=== PATIENT | female | born 1990 | race Caucasian/White ===

== ENCOUNTER 2022-03-12 15:57 | Inpatient (IN) | payer SELFPAY ==
--- OUTSIDE RECORDS SUMMARY | 2022-03-12 16:00 | XMS REPORT | Continuity of Care Document ---
:1990 Author Organization [facility] t Address [address] [place] [address] Dr. Arzate [address] [place] [id number] Care Team Providers Name Role Phone DR RADHA ZALDIVAR Attending Clinician Unavailable DR RADHA ZALDIVAR Admitting Clinician Unavailable Problems This patient has no known problems. Allergies, Adverse Reactions, Alerts Allergy Allergy Status Severity Reaction(s) Onset Inactive Treating Comm ents Source Name Type Date Date Clinician No Known DA Active [facility] s Medications This patient has no known medications. Vital Signs Vital Name Observation Time Observation Value Comments Source Height 2021-02-15 01:24:00 162.56 CM Weight 2021-02-15 01:24:00 65.18 KG Procedures This patient has no known procedures. Encounters Start End Encounter Admission Attending Care Care Encounter Source Date/Time Date/Time Type Type Clinicians Facility Department ID 2021-02-15 2021-02-15 Emergency E ZALDIVAR [facility] [id number] [address] 01:03:00 03:00:00 RADHA [facility] Results Test Description Test Time Test Comments Results Result Comments Source BLOOD CULTURE 2021-02-20 07:54:00 Test Item Value Reference Range Interpretation Comme nts Culture Observations (test code = COB1) NO GROWTH AFTER 5 DAYS CBC WITH MANUAL DIFF *WW*2021-02-15 02:21:00 Test Item Value Reference Range Interpretation Comments WBC (test code = WBC) 15.7 10\S\3/uL 4.5-11.0 H RBC (test code = RBC) 4.32 10\S\6/uL 4.30-5.70 HGB (test code = HBG) 8.5 g/dL 12.0-15.5 L HCT (test code = HCT) 29.5 % 35.0-44.0 L MCV (test code = MCV) 68.3 fL 81.0-99.0 L MCH (test code = MCH) 19.7 pg 27.0-31.0 L MCHC (test code = MCHC) 28.8 g/dL 32.0-36.0 L RDW (test code = RDW) 20.3 % 11.5-14.5 H PLT (test code = PLT) 349 10\S\3/uL 130-400 MPV (test code = MPV) 9.8 fL 9.4-12.4 NEUTROP # (test code = 13.0 10\S\3/uL 1.6-8.0 H NE#) LYMPH # (test code = 1.6 10\S\3/uL 1.1-3.5 LY#) MONOCYTE # (test code = 0.9 10\S\3/uL 0.0-1.1 MO#) EOSINOPH # (test code = 0.1 10\S\3/uL 0.0-0.7 EO#) BASOPHIL # (test code = 0.0 10\S\3/uL 0.0-0.3 BA#) IG # (test code = IG#) 0.08 10\S\3/uL 0.00-0.06 H NRBC # (test code = 0.00 10\S\3/uL 0.00-0.01 NRBC#) NEUTROPH % (test code = 82.4 % 35.0-73.0 H NE%) LYMPH % (test code = 10.4 % 20.0-55.0 L LY%) MONO % (test code = MO%) 6.0 % 2.5-10.0 EOSINOPH % (test code = 0.6 % 0.0-5.0 EO%) BASOPHIL % (test code = 0.1 % 0.0-2.0 BA%) IG % (test code = IG%) 0.5 % 0.0-0.8 NRBC% (test code = 0.0 % 0.0-0.2 NRBC%) MAN DIFF (test code = MANUAL HMDIFF) DIFFERENTIAL SEG (test code = SEG) 87 % 42-75 H BAND (test code = BAND) 0 % 0-8 LYMPH (test code = 6 % 20-51 L LYMPH) MONO (test code = MONO) 5 % 3-11 EOS (test code = EOS) 2 % 0-10 BASO (test code = BASO) 0 % 0-2 RBC MORPH (test code = ABNORMAL NORMAL A RBCMORN) PLT EST (test code = ADEQUATE ADEQUATE PLTEST) PLT MORPH (test code = NORMAL (1.5-3 um) NORMAL PLTMOR) ANISO (test code = 3+ NONE A ANISO) HYPOCHROM (test code = 4+ NONE A HYPOC) MICROCYTIC (test code = 3+ NONE A MICRO) TOXIC GRAN (test code = 1+ NONE A TOXG) VACUOLES (test code = PRESENT NONE A VAC) OVALOCYTES (test code = 1+ NONE A OVA) STOMATO (test code = 1+ NONE A STOM) BASIC METABOLIC PANEL 2021-02-15 02:09:00 Test Item Value Reference Range Interpretation Comments GLUCOSE (test code 107 mg/dL 75-100 H = 06D) SODIUM (test code 135 mmol/L 136-145 L = 01A) POTASSIUM (test 3.9 mmol/L 3.6-5.1 code = 01B) CHLORIDE (test 107 mmol/L 98-107 code = 04A) CO2 (test code = 22 mmol/L 22-32 02A) ANION GAP (test 9.9 mmol/L code = ANG) BUN (test code = 8 mg/dL 7-18 05D) CREATININE (test 0.5 mg/dL 0.4-1.1 code = 03E) GFR (test code = 125 See_Comment [Automated GFR) mL/min/1.73m\S\2 message] e system which generated this result transmit janet reference range : >=90. The reference range was not used to interpret this result as normal/abnormal . GFR 145 See_Comment [Automated GIBRALTARIAN (test mL/min/1.73m\S\2 message] The code = GFRAA) system which generated this result transmit janet reference range : >=90. The reference range was not used to interpret this result as normal/abnormal . EGFR (test code = eGFR BY EGFR) CKD-EPI CALCULATION IS NOT RECOMMENDED FOR PATIENTS UNDER 18 YEARS OF AGE. BUN/CREA (test 15 06-11 code = BCR) CALCIUM (test code 8.9 mg/dL 8.3-9.5 = 09D) SERUM MONOCLONAL *WW*2021-02-15 01:57:00 Test Item Value Reference Range Interpretation Comments PREG SRM (test code = PGS) NEGATIVE NEGATIVE
[2022-03-12 17:25] LABS: SARS-CoV-2 Antigen Rapid Res Negative (Negative)
[2022-03-12 17:31] LABS: Urine Blood 1+ (Negative); Urine Glucose Negative (Negative); Urine Protein 2+ (Negative); Urine pH 5.5 (5.0-7.0)
[2022-03-12 18:25] LABS: Urine Bacteria 20-50 /HPF (<20); Urine Mucus Slight /HPF (None Seen); Urine RBC >50 /HPF (None Seen)
--- NOTE | 2022-03-12 19:37 | ER ---
Nurse's Notes [facility] Name: Ofelia Pacheco Age: 32 yrs Sex: Female : 1990 Arrival Date: 03/12/2022 Time: 16:01 Bed 23 Private MD: Diagnosis: UTI/ Urinary tract infection, site not specified;Severe sepsis with septic shock Presentation: 03/12 16:08 Chief complaint: Patient states: back pain and left flank x3 days denies trauma. 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 20g left hand. Coronavirus screen: Vaccine status: Patient reports being unvaccinated. Client denies travel out of the [place] in the last 14 days. Ebola Screen: Patient negative for fever greater than or equal to 101.5 degrees Fahrenheit, and additional compatible Ebola Virus Disease symptoms Patient denies exposure to infectious person. Patient denies travel to an Ebola-affected area in the 21 days before illness onset. Initial Sepsis Screen: Does the patient meet any 2 criteria? No. Patient's initial sepsis screen is negative. Does the patient have a suspected source of infection? No. Patient's initial sepsis screen is negative. Risk Assessment: Do you want to hurt yourself or someone else? Patient reports no desire to harm self or others. Onset of symptoms was March 09, 2022. 16:08 Method Of Arrival: EMS: [facility] 16:08 Acuity: TAZ 3 5 Triage Assessment: 16:10 General: Appears uncomfortable, unkempt, Behavior is calm, cooperative. Pain: Complains [facility] of pain in back. Musculoskeletal: Circulation, motion, and sensation intact. Capillary refill < 3 seconds, Range of motion: intact in all extremities. 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 - Social history:: Smoking status: Patient reports the use of cigarette tobacco products, smokes one pack cigarettes per day. Screenin:30 Abuse screen: Denies threats or abuse. Denies injuries from another. Nutritional kb3 screening: No deficits noted. Tuberculosis screening: No symptoms or risk factors identified. Fall Risk None identified. Assessment: 19:30 General: Appears distressed, uncomfortable, Behavior is calm, cooperative, anxious, kb3 Received care of pt from [facility]. Pt is restless, upon entering room, pt states "I have not had pain medicine and I need something." Advised that she had medication ordered that would be delivered shortly. Pt noted to be tachycardic and hypotensive on monitor. Pt reports dysuria and lef tflank pain x3 days Marlyn RN at bedside.. 19:30 Neuro: No deficits noted. : Reports burning with urination, cramping, incontinence, kb3 pain urgency, urinary frequency. 19:30 : CVA tenderness noted on left. kb3 19:30 Neuro: Reports dizziness. kb3 20:30 Reassessment: Patient is alert, oriented x 3, equal unlabored respirations, skin bb warm/dry/pink. pt instructed on need for admittance verbalized understanding of and agrees to plan of care awaiting room assignment. 21:39 Reassessment: Patient is alert, oriented x 3, equal unlabored respirations, skin bb warm/dry/pink. pt c/o headache EDP notified attempted to draw T\\T\\S unsuccessful notified phlebotomy for lab draw. 22:04 General: Outside lab OK to add TSH on to existing specimens. kb3 22:38 General: Pt provided with sandwich and apple sauce. Reports feeling better.. kb3 Vital Signs: 16:08 BP 117 / 84; Pulse 74; Resp 18; Temp 98.6; Pulse Ox 98% ; Weight 63.5 kg; Height 5 ft. [facility] 5 in. (165.10 cm); 19:41 BP 87 / 50; Pulse 121; Resp 22; Pulse Ox 100% ; kb3 21:05 BP 91 / 48; Pulse 88; Resp 18 S; Pulse Ox 97% on R/A; bb 21:41 BP 92 / 57; Pulse 94; Resp 18 S; Temp 98.5(O); Pulse Ox 100% on R/A; bb 22:01 BP 92 / 55; Pulse 85; Resp 20; Pulse Ox 100% ; kb3 22:44 BP 105 / 48; Pulse 95; Resp 18; Pulse Ox 100% ; kb3 16:08 Body Mass Index 23.30 (63.50 kg, 165.10 cm) [facility] ED Course: 16:01 Patient arrived in ED. mr 16:10 Triage completed. jh5 16:10 Arm band placed on right wrist. jh5 16:48 [facility]al Gaspar [facility]C [facility]. snw 16:48 Asiya Carroll MD is Attending Physician. snw 17:30 No provider procedures requiring assistance completed. Inserted saline lock: 20 gauge kb3 in right hand, using aseptic technique. Blood collected. 17:35 Urine Microscopic Only Sent. kc6 19:30 Patient has correct armband on for positive identification. Bed in low position. Call kb3 light in reach. Side rails up X 1. Client placed on continuous cardiac and pulse oximetry monitoring. NIBP monitoring applied. Warm blanket given. 19:32 Lilian Garza, RN is Primary Nurse. kb3 20:01 Padilla Sanford is Hospitalizing Provider. snw 20:30 Initial lab(s) drawn, by me, sent to lab. First set of blood cultures drawn by me. bb Inserted saline lock: 20 gauge in left wrist, using aseptic technique. Blood collected. 20:45 Second set of blood cultures drawn by me. bb 21:07 Patient admitted, IV remains in place. bb 21:11 Notified Nurse Practitioner and/or Physician Objective C Developer of a critical lab result(s), HGB bb of 6.3, HCT of 20.4 Coral Gaspar MORTICIAN INVESTIGATOR notified. 21:40 Consent for blood and/or blood product transfusion signed by patient. bb 22:33 Abdomen In Process Unspecified. EDMS Administered Medications: 19:42 Drug: Ketorolac 30 mg Route: IVP; Site: right wrist; bb 20:30 Follow up: Response: No adverse reaction bb 19:42 Drug: NS 0.9% 1000 ml Route: IV; Rate: 1 bolus; Site: right wrist; bb 20:45 Follow up: IV Status: Completed infusion; IV Intake: 950ml bb 19:43 Drug: Rocephin (cefTRIAXone) 1 grams Route: IV; Rate: calculated rate; Site: right bb wrist; 20:00 Follow up: IV Status: Completed infusion; IV Intake: 50ml bb 20:24 Drug: NS 0.9% 1000 ml Route: IV; Rate: 1 bolus; Site: right wrist; bb 22:02 Follow up: Response: No adverse reaction; IV Status: Completed infusion; IV Intake: kb3 1000ml 23:39 CANCELLED (Physician Discretion): NS 0.45 % with KCl 20 mEq/L 1000 ml IV at 125 ml/hr sb4 once 03/13 00:16 Drug: Potassium Chloride 20 mEq Route: IV; Rate: calculated rate; Site: right wrist; bb Medication: 03/12 19:30 VIS not applicable for this client. kb3 Intake: 20:00 IV: 50ml; Total: 50ml. bb 20:45 IV: 950ml; Total: 1000ml. bb 22:02 IV: 1000ml; Total: 2000ml. kb3 Outcome: 19:37 Discharge ordered by MD. snw 20:01 Decision to Hospitalize by Provider. snw 21:07 Condition: stable bb 21:07 Instructed on the need for admit. 03/13 13:52 Patient left the ED. aa5 Signatures: Dispatcher [employer] EDMS Coral Gaspar, DONTEC CONTENT PUBLISHER-Mira SmithKami Marlyn Olguin, RN RN Massiel Chiang, RN RN aa5 Christiana Gimenez RN RN [email or web address] Tiffanie Haddad 6 Lilian Garza, RUSS RN carlos3 Annia Maravilla PA-C sb4 Corrections: (The following items were deleted from the chart) 03/12 20:09 19:30 General: Appears distressed, uncomfortable, Behavior is calm, cooperative, kb3 anxious, Received care of pt from [facility]. Pt is restless, upon entering room, pt states "I have not had pain medicine and I need something." Advised that she had medication ordered that would be delivered shortly. Pt noted to be tachycardic and hypotensive on monitor. Marlyn SOLANO at bedside.. kb3 22:39 22:38 Neuro: Reports dizziness, kb3 kb3
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
[2022-03-12] MEDS ORDERED: CEFTRIAXONE 1000 MG/VIAL ONE (19:43)
[2022-03-12] MEDS ORDERED: KETOROLAC 30 MG/ML INJ ONE (19:43)
[2022-03-12] MEDS ORDERED: NA CHLORIDE 0.9% 1,000 ML ONE ×2 (19:44→20:32)
[2022-03-12] MEDS ORDERED: NA CHLORIDE 0.9% 50 ML ONE (19:44)
[2022-03-12 21:08] LABS: Absolute Lymphocytes (CBC) 1.5 K/uL (0.7-4.9); Hematocrit 20.4 % (36.0-45.0); Lymphocytes % 11.4 % (15.3-44.8); MCV 60.3 fL (80-100); MPV 8.2 fL (7.6-11.3); RBC Red Blood Cell Count 3.39 M/uL (3.86-4.86)
[2022-03-12 21:30] LABS: Blood Morphology Comment NOTED (NOT SEEN); Platelet Estimate ADEQ; White Blood Cell Scan OK (OK)
[2022-03-12 21:31] LABS: Anisocytosis 1+; Hypochromasia 2+
[2022-03-12 21:48] LABS: ALT/SGPT 11 U/L (12-78); AST/SGOT < 3 U/L (15-37); Albumin 2.6 g/dL (3.4-5.0); Alkaline Phosphatase 65 U/L (45-117); BUN Blood Urea Nitrogen 9 mg/dL (7-18); Bicarbonate 20 mmol/L (21-32); Bilirubin Total 0.4 mg/dL (0.2-1.0); Glomerular Filtration Rate 98 ml/min (=/>90); Glucose Level 129 mg/dL (74-106); Protein, Total 6.4 g/dL (6.4-8.2); Sodium Level 135 mmol/L (136-145)
[2022-03-12 21:52] LABS: Potassium 2.9 mmol/L (3.5-5.1)
[2022-03-12 22:17] LABS: Thyroid Stimulating Hormone 0.711 uIU/mL (0.360-3.740)
--- NOTE | 2022-03-12 22:47 | RAD REPORT ---
EXAM DESCRIPTION: CT - Abdomen Pelvis W Contrast - 03/12/2022 10:31 pm CLINICAL HISTORY: Abdominal pain COMPARISON: 2012 TECHNIQUE: Computed axial tomography of the abdomen pelvis was obtained. 100 cc Isovue-300 was admin istered intravenously. Oral contrast was not requested which limits evaluation of bowel and appendix All CT scans are performed using dose optimization technique as appropriate and may include automated exposure control or mA/KV adjustment according to patient size. FINDINGS: Multiple gallstones. Gallbladder wall is not thickened. The liver, spleen, pancreas, and adrenals appear unremarkable. Right kidney unremarkable. Small low-density area left kidney reaching the periphery probably mild pyelonephritis. No hydronephr osis. 6.3 centimeter left ovarian cyst without significant fluid IMPRESSION: 6.3 centimeter left ovarian cyst without significant fluid Mild left pyelonephritis Cholelithiasis
--- NOTE | 2022-03-12 23:11 | P.HP ---
Certification for Inpatient Patient admitted to: Inpatient With expected LOS: <2 Midnights Patient will require the following post-hospital care: None Practitioner: I am a practitioner with admitting privileges, knowledge of patient current condition, hospital course, and medical plan of care. Services: Services provided to patient in accordance with Admission requirements found in Title 42 Section 412.3 of the Code of Federal Regulations Patient History Date of Service: 03/13/22 Reason for admission: Pyelonephritis, Anemia History of Present Illness: Patient is a 32 year old female who presented to the ED with complaints of left flank pain for 3 days. She also reports associated dysuria, urgency, and frequency. She states that she quit using IV meth "cold turkey" 2 weeks ago. Vital signs were initially stable but after waiting in the waiting room for several hours, they started to worsen. She was tachycardic and hypotensive. Labs significant for WBC 13, hgb 6.3, potassium 2.9, urine positive for UTI. Lactic acid 1.8. CT abdomen pelvis showed mild left sided pyelonephritis. She was given 2L fluid, rocephin, toradol, and supplemental potassium in ED. BP has improved but she had TMAX OF 103. She currently has 1 unit PRBC transfusing. She is admitted for further management. Allergies clindamycin Allergy (Mild, Verified 04/19/12 06:14) Hives Home Medications: NK [No Home Meds] 03/13/22 - Past Medical/Surgical History Diabetic: No -: IV Methamphetamine Abuse Past Surgical History: Patient denies surgical history Psychosocial/ Personal History: Patient lives at home with her children. - Family History Father -: Heart disease, Hypertension - Social History Smoking Status: Current every day smoker Alcohol use: No CD- Drugs: Yes Caffeine use: Yes Place of Residence: Home Review of Systems Genitourinary: Dysuria, Frequency, Urgency Musculoskeletal: Back Pain Physical Examination - Physical Exam General: Alert, In no apparent distress HEENT: Atraumatic, PERRLA, EOMI, Sclerae nonicteric Neck: Supple, 2+ carotid pulse no bruit, No LAD, Without JVD or thyroid abnormality Respiratory: Clear to auscultation bilaterally, Normal air movement Cardiovascular: Regular rate/rhythm, Normal S1 S2 Gastrointestinal: Normal bowel sounds, No tenderness Musculoskeletal: No tenderness Integumentary: No rashes Neurological: Normal speech, Normal strength at 5/5 x4 extr, Normal tone, Normal affect - Studies Laboratory Data (last 24 hrs) 03/12/22 20:30: Sodium 135 L, Potassium 2.9 L*, BUN 9, Creatinine 0.81, Glucose 129 H, Total Bilirubin 0.4, AST < 3 L, ALT 11 L, Alkaline Phosphatase 65 03/12/22 20:30: WBC 13.10 H, Hgb 6.3 L*, Hct 20.4 L*, Plt Count 207 Assessment and Plan - Problems (Diagnosis) (1) Pyelonephritis Current Visit: Yes Status: Acute (2) Sepsis Current Visit: Yes Status: Acute Qualifiers: Sepsis type: sepsis due to unspecified organism Sepsis acute organ dysfunction status: with acute organ dysfunction Severe sepsis acute organ dysfunction type: unspecified Severe sepsis shock status: without septic shock Qualified Code(s): A41.9 - Sepsis, unspecified organism; R65.20 - Severe sepsis without septic shock (3) Anemia Current Visit: Yes Status: Acute Qualifiers: Anemia type: unspecified type Qualified Code(s): D64.9 - Anemia, unspecified (4) Hypokalemia Current Visit: Yes Status: Acute - Plan -Continue rocephin and aggressive IV fluids for severe sepsis -Supplemental potassium. Recheck BMP in morning -Blood and urine cultures obtained. Follow for antibiotic selection. -Pain control as BP tolerates. Tylenol PRN fever -1 unit PRBC transfusing. Recheck post H&H. Patient reports history of anemia but has never required transfusion. Iron studies ordered. -Monitor and replete electrolytes per protocol -Reconcile and continue home medications -SCDs for VTE prophylaxis -Full code Discharge Plan: Home Plan to discharge in: 48 Hours - Advance Directives Does patient have a Living Will: No Does patient have a Durable POA for Healthcare: No - Code Status/Comfort Care Code Status Assessed: Yes (Full) Critical Care: No Time Spent Managing Pts Care (In Minutes): 50
[2022-03-12] MEDS ORDERED: MORPHINE 2 MG/ML SYR IV PRN (23:30)
[2022-03-12] MEDS ORDERED: ONDANSETRON 4 MG/2 ML VIAL IV PRN (23:30)
[2022-03-12] MEDS ORDERED: NS KCL 20MEQ 20 MEQ/1,000 ML BAG IV SCH (23:45)
[2022-03-13] MEDS ORDERED: NA CHLORIDE 0.9% 1,000 ML ONE ×3 (00:18→10:18)
[2022-03-13] MEDS ORDERED: KCL 20 MEQ/100 mL IVPB 100 ML IV ONE (00:18)
[2022-03-13] MEDS ORDERED: ACETAMINOPHEN 500 MG TAB PO ONE (00:20)
[2022-03-13] MEDS: NA CHLORIDE 0.9% 1,000 ML IV SCH ×4 (00:30→20:28)
[2022-03-13] MEDS ORDERED: ACETAMINOPHEN 500 MG TAB ONE ×2 (00:34→08:45)
[2022-03-13] MEDS: NICOTINE 21 MG/PAT TD SCH ×2 (00:41→08:55)
[2022-03-13] MEDS ORDERED: NICOTINE 21 MG/PAT TD ONE ×2 (00:51→08:45)
[2022-03-13] MEDS ORDERED: NA CHLORIDE 0.9% 250 ML ONE ×3 (01:23→12:35)
[2022-03-13] MEDS: ALBUMIN HUMAN 25% 50 ML IV SCH ×2 (02:16→02:46)
[2022-03-13] MEDS ORDERED: ALBUMIN HUMAN 25% 50 ML IV ONE ×2 (02:26→02:46)
[2022-03-13] MEDS ORDERED: MIDODRINE HCL 5 MG TABLET PO ONE (03:18)
--- NOTE | 2022-03-13 04:45 | P.INFCA ---
Sepsis Focused Assessment - Focused Assessment Complete? Sepsis Focused Assessment Completed?: Yes - Sepsis Screen Result Severe Sepsis: Positive Septic Shock: Positive - Evaluation Current stage of sepsis: Septic shock - Vital Signs Reviewed: Yes Temperature: 98.7 F Heart rate: 96 Blood Pressure: 84/50 Respiratory Rate: 28 O2 Sat by Pulse Oximetry: 100 - Examination Date exam was performed: 03/13/22 Time exam was performed: 04:45 Heart: Regular rate/rhythm Lungs: Clear bilaterally Peripheral pulses: 3+ Normal Peripheral pulse location: Radial Capillary refill: Brisk Skin examination: Normal turgor
--- NOTE | 2022-03-13 04:48 | P.PN ---
Date of Service: 03/13/22 Patient's BP has remained 80s systolic/40s diastolic throughout the night. It has been checked multiple times manually and with different machines. She is only complaining of headache. She is completely awake and alert and active. She has received 3L of fluid, 25 mg of albumin, 1 unit PRBC, and 5 mg of midodrine without much improvement in BP. Because her MAP is sustained < 65, will initiate low dose levophed. I have also broadened her antibiotics to cefepime and vancomycin. Patient has a history of IV methamphetamine abuse and reports she had MRSA skin infection in the past. I have ordered echo to further investigate possible endocarditis.
[2022-03-13] MEDS ORDERED: VANCOMYCIN 1 GM/VIAL ONE ×2 (04:54→12:35)
[2022-03-13] MEDS ORDERED: NOREPINEPHRINE BITARTRATE/D5W 4 MG/250 ML BAG IV ONE (04:55)
[2022-03-13] MEDS ORDERED: VANCOMYCIN 1 GM in NA CHLORIDE 0.9% 250 ML IVPB SCH (05:00)
[2022-03-13] MEDS ORDERED: NOREPINEPHRINE 4 MG in D5W 250 ML IV SCH (05:00)
[2022-03-13] MEDS ORDERED: VANCOMYCIN 500 MG/VIAL ONE (05:20)
[2022-03-13] MEDS ORDERED: VANCOMYCIN 1.5 GM in NA CHLORIDE 0.9% 500 ML IVPB ONE (05:30)
[2022-03-13 06:20] LABS: Absolute Lymphocytes (CBC) 1.6 K/uL (0.7-4.9); Hematocrit 23.1 % (36.0-45.0); MCV 64.6 fL (80-100); MPV 8.6 fL (7.6-11.3); RBC Red Blood Cell Count 3.57 M/uL (3.86-4.86)
[2022-03-13 06:35] LABS: BUN Blood Urea Nitrogen 8 mg/dL (7-18); Bicarbonate 18 mmol/L (21-32); Ferritin 33.5 ng/mL (8-388); Folic Acid, (Folate) 19.1 ng/mL (3.1-17.5); Glomerular Filtration Rate 118 ml/min (=/>90); Glucose Level 135 mg/dL (74-106); HDL Cholesterol 21 mg/dL (40-60); Magnesium 2.3 mg/dL (1.8-2.4); Potassium 3.3 mmol/L (3.5-5.1); Sodium Level 139 mmol/L (136-145); Transferrin 213 mg/dL (200-360)
[2022-03-13 06:38] LABS: Iron < 10.0 ug/dL (50-170); LDL Cholesterol, Calculated 17 mg/dL (<130)
[2022-03-13] MEDS ORDERED: NA CHLORIDE 0.9% 100 ML ONE (08:09)
[2022-03-13] MEDS ORDERED: CEFEPIME 1 GM/VIAL ONE ×2 (08:09→09:17)
[2022-03-13] MEDS ORDERED: NA CHLORIDE 0.9% 500 ML IV ONE (08:29)
[2022-03-13] MEDS ORDERED: NA CHLORIDE 0.9% 500 ML ONE (08:45)
[2022-03-13] MEDS ORDERED: POTASSIUM 25 MEQ EFFERV TAB ONE (08:55)
[2022-03-13] MEDS: ACETAMINOPHEN 500 MG TAB PO PRN ×3 (08:56→20:27)
[2022-03-13] MEDS ORDERED: CEFEPIME 2 GM in NA CHLORIDE 0.9% 100 ML IV SCH (09:00)
[2022-03-13] MEDS ORDERED: CEFEPIME 1 GM in NA CHLORIDE 0.9% 100 ML IV SCH (09:00)
[2022-03-13] MEDS ORDERED: POTASSIUM 25 MEQ EFFERV TAB PO ONE (09:00)
[2022-03-13] MEDS: VANCOMYCIN 1 GM in NA CHLORIDE 0.9% 250 ML IVPB SCH ×2 (12:20→20:27)
--- NOTE | 2022-03-13 13:37 | ECHO ---
HEIGHT: 5 ft 5 in WEIGHT: 139 lb 15.896 oz DATE OF STUDY: 03/13/[address]: Annia Maravilla 2-DIMENSIONAL: YES M.MODE: YES DOPPLER: YES COLOR FLOW: YES TDS: PORTABLE: YES DEFINITY: BUBBLE STUDY: DIAGNOSIS: RULE OUT ENDOCARDITIS, HISTORY OF IV METH CARDIAC HISTORY: CATHERIZATION: NO SURGERY: NO PROSTHETIC VALVE: NO PACEMAKER: NO MEASUREMENTS (cm) DIASTOLIC (NORMALS) SYSTOLIC (NORMALS) IVSd 0.8 (0.6-1.2) LA Diam 3.3 (1.9-4.0) LVEF 55% LVIDd 4.9 (3.5-5.7) LVIDs 3.5 (2.0-3.5) %FS 28% LVPWd 0.9 (0.6-1.2) Ao Diam 2.8 (2.0-3.7) 2 DIMENSIONAL ASSESSMENT: RIGHT ATRIUM: NORMAL LEFT ATRIUM: NORMAL RIGHT VENTRICLE: NORMAL LEFT VENTRICLE: NORMAL TRICUSPID VALVE: NORMAL MITRAL VALVE: NORMAL PULMONIC VALVE: NORMAL AORTIC VALVE: NORMAL PERICARDIAL EFFUSION: NONE AORTIC ROOT: NORMAL LEFT VENTRICULAR WALL MOTION: NORMAL DOPPLER/COLOR FLOW: NORMAL COMMENTS: NORMAL 2-DIMENSIONAL ECHOCARDIOGRAM WITH DOPPLER. NO VEGETATION. TECHNOLOGIST: LAKEISHA MILLS
[2022-03-13] MEDS ORDERED: LIDOCAINE 1% MPF 5 ML VIAL ONE (15:20)
--- NOTE | 2022-03-13 15:43 | P.PN ---
Subjective Date of Service: 03/13/22 Chief Complaint: Pyelonephritis, Anemia Patient is complaining of headache and back pain. She was hypotensive this morning. Blood pressure improved with phenylephrine drip. She has been febrile. Physical Examination - Vital Signs Temperature: 100.9 F Blood Pressure: 112/92 Pulse: 71 Respirations: 22 Pulse Ox (%): 100 - Studies Laboratory Data (last 24 hrs) 03/12/22 20:30: Sodium 135 L, Potassium 2.9 L*, BUN 9, Creatinine 0.81, Glucose 129 H, Total Bilirubin 0.4, AST < 3 L, ALT 11 L, Alkaline Phosphatase 65 03/12/22 20:30: WBC 13.10 H, Hgb 6.3 L*, Hct 20.4 L*, Plt Count 207 Assessment And Plan - Current Problems (Diagnosis) (1) Anemia Current Visit: Yes Status: Acute Qualifiers: Anemia type: unspecified type Qualified Code(s): D64.9 - Anemia, unspecified (2) Pyelonephritis Current Visit: Yes Status: Acute (3) Sepsis Current Visit: Yes Status: Acute Qualifiers: Sepsis type: sepsis due to unspecified organism Sepsis acute organ dysfunction status: with acute organ dysfunction Severe sepsis acute organ dysfunction type: unspecified Severe sepsis shock status: without septic shock Qualified Code(s): A41.9 - Sepsis, unspecified organism; R65.20 - Severe sepsis without septic shock - Plan Physical Exam General: Alert, In no apparent distress HEENT: Sclerae nonicteric Neck: Supple, No LAD, Without JVD. Respiratory: Clear to auscultation bilaterally, Normal air movement Cardiovascular: Regular rate/rhythm, Normal S1 S2 Gastrointestinal: Normal bowel sounds, No tenderness Musculoskeletal: Bilateral costovertebral angle tenderness. Integumentary: No rashes Neurological: Normal speech, Normal strength at 5/5 x4 extr, Normal tone, Normal affect Plan: Continue broad-spectrum antibiotics-IV cefepime and vancomycin. IV fluid Vasopressors Urine culture is growing gram-negative rods. Follow cultures. Supportive measures-antipyretics, antiemetics and pain medications as needed. Status post 1 unit PRBC for anemia. Posttransfusion hemoglobin is 7. No GI bleed, no hematemesis. Monitor H&H and transfuse as needed.
[2022-03-13] MEDS ORDERED: VANCOMYCIN 1.25 GM in NA CHLORIDE 0.9% 250 ML IVPB SCH (17:00)
[2022-03-13] MEDS: CEFEPIME 2 GM in NA CHLORIDE 0.9% 100 ML IV SCH (17:02)
[2022-03-13] MEDS: MORPHINE 2 MG/ML SYR IV PRN (17:02)
[2022-03-13] MEDS ORDERED: CEFTRIAXONE 1,000 MG in NA CHLORIDE 0.9% 50 ML IVPB SCH (20:00)
[2022-03-13] MEDS: BENZONATATE 100 MG CAP PO PRN (20:27)
[2022-03-13] MEDS ORDERED: POTASSIUM CL SA 10 MEQ TAB PO ONE (20:39)
[2022-03-14] MEDS: MORPHINE 2 MG/ML SYR IV PRN ×2 (00:05→13:45)
[2022-03-14] MEDS: CEFEPIME 2 GM in NA CHLORIDE 0.9% 100 ML IV SCH ×3 (00:06→16:24)
[2022-03-14] MEDS ORDERED: MELATONIN 5 MG TABLET PO PRN (00:14)
[2022-03-14] MEDS: ACETAMINOPHEN 500 MG TAB PO PRN ×2 (03:36→11:32)
[2022-03-14] MEDS: VANCOMYCIN 1 GM in NA CHLORIDE 0.9% 250 ML IVPB SCH ×2 (03:37→12:00)
[2022-03-14] MEDS: BENZONATATE 100 MG CAP PO PRN (03:37)
[2022-03-14 05:14] LABS: Absolute Lymphocytes (CBC) 1.5 K/uL (0.7-4.9); MPV 8.3 fL (7.6-11.3); RBC Red Blood Cell Count 3.28 M/uL (3.86-4.86)
[2022-03-14 05:15] LABS: Hematocrit 20.7 % (36.0-45.0)
[2022-03-14 05:30] LABS: Potassium 3.7 mmol/L (3.5-5.1)
[2022-03-14] MEDS ORDERED: NA CHLORIDE 0.9% 250 ML IV SCH (06:01)
[2022-03-14] MEDS: NICOTINE 21 MG/PAT TD SCH (07:52)
[2022-03-14] MEDS ORDERED: POTASSIUM CL SA 10 MEQ TAB PO ONE (09:00)
[2022-03-14 12:56] LABS: Hematocrit 24.6 % (36.0-45.0)
[2022-03-14] MEDS: NA CHLORIDE 0.9% 1,000 ML IV SCH ×2 (15:36→16:15)
--- NOTE | 2022-03-14 16:04 | P.PN ---
Subjective Date of Service: 03/14/22 Chief Complaint: Pyelonephritis, Anemia Patient states she feels much better today. She is on low-dose phenylephrine with systolic blood pressure in the 90s No fever today She tolerated her breakfast. Physical Examination - Vital Signs Temperature: 97.7 F Blood Pressure: 101/62 Pulse: 93 Respirations: 29 Pulse Ox (%): 95 - Studies Microbiology Data (last 24 hrs): 03/12/22 17:31 Clean Catch Urine [place] Count - Final >100,000 CFU/ML. 03/12/22 17:31 Clean Catch Urine - Final Escherichia Coli Assessment And Plan - Current Problems (Diagnosis) (1) Anemia Current Visit: Yes Status: Acute Qualifiers: Anemia type: unspecified type Qualified Code(s): D64.9 - Anemia, unspecified (2) Pyelonephritis Current Visit: Yes Status: Acute (3) Sepsis Current Visit: Yes Status: Acute Qualifiers: Sepsis type: sepsis due to unspecified organism Sepsis acute organ dysfu nction status: with acute organ dysfunction Severe sepsis acute organ dysfunction type: unspecified Severe sepsis shock status: without septic shock Qualified Code(s): A41.9 - Sepsis, unspecified organism; R65.20 - Severe sepsis without septic shock - Plan Physical Exam General: Alert, In no apparent distress HEENT: Sclerae nonicteric Neck: Supple, No LAD, Without JVD. Respiratory: Clear to auscultation bilaterally, Normal air movement Cardiovascular: Regular rate/rhythm, Normal S1 S2 Gastrointestinal: Normal bowel sounds, No tenderness Musculoskeletal: Bilateral costovertebral angle tenderness. Integumentary: No rashes Neurological: Normal speech, Normal strength at 5/5 x4 extr, Normal tone, Normal affect Plan: Urine culture is growing E. coli Continue IV cefepime. Vancomycin discontinued Continue IV IV fluid Wean off vasopressors Blood cultures: No growth to date. Status post PRBC transfusion No GI bleed, no hematemesis. Patient reported heavy menses which could explain her anemia Monitor H&H and transfuse as needed. Wean off vasopressors and transferred to the medical floor if possible.
[2022-03-14] MEDS: HYDROCODONE/APAP 5/325 MG TAB PO PRN (18:01)
[2022-03-14 19:26] VITALS: O2SAT 100
[2022-03-14] MEDS: VANCOMYCIN 1.25 GM in NA CHLORIDE 0.9% 250 ML IVPB SCH (20:49)
--- NOTE | 2022-03-14 21:13 | CON ---
Date of Consultation: 03/13/2022 Reason For Consultation: Stat central line placement due to sepsis and vasocontrictors. History Of Present Illness: This is a case of a 32-year-old patient admitted to the hospital with UT I, possible pyelo sepsis, currently on vasopressors and a central line is needed medially. The patie nt is awake, alert. She states she has been having some back pain and flank pain for the last 3 days and was admitted to the hospital with fevers and chills. She is still having chills as we speak wit h her at this moment. Past Medical History: Meth use. She states she stopped using that about 3 weeks ago. Allergies: CLINDAMYCIN. Medications: Include Rocephin, potassium, and saline. Family History: Noncontributory. Review of Systems: Patient has chills and fevers. Once again, she had some vasopressors for hypotension and sepsis. Physical Examination: General: Patient is awake and alert. Eyes: Pupils equal and reactive. Anicteric. Neck: Supple. Chest: Clear. Abdomen: Soft and depressible. Extremities: Good capillary refill. Laboratory Data: Blood work reviewed. Assessment: Sepsis on vasopressors, hypotension. The patient will have emergent central line. She is shaking from chills. I talked to her about the options of the neck, chest, and the femoral. Katlin use of chills she cannot stay still. I believe we are going to have to go femoral. It is the safest at this moment and eventually if she needs a central line rn long term care, we may have to change it. Once she can stay still, we can put a central line safely on the upper torso. The benefits, alternatives , and risks were fully explained of central line patient, which include, but are not limited to infec tion, bleeding, damage to adjacent structures, anesthesia complication, hematoma, pericarditis, clots , DVTs, PE, [place] and even . She also understands this may not relieve the symptoms. She might ne ed more than one surgical intervention. She understood and signed a consent. Procedure: Placement of a central line in the right femoral area. Under aseptic conditions, injecte d lidocaine viscous for local anesthetic. After time-out, we proceeded to prep and drape the right g roin area in usual sterile fashion. Local anesthesia was applied over the area followed by insertion of an 18-gauge needle in the right femoral vein at the first attempt. Guidewire was passed through and then a central line triple-lumen was placed using Seldinger technique. Excellent backflow and in flow. The line was flushed with saline, secured in place with 3-0 nylon, and covered with sterile dr essings. Patient tolerated the procedure well. Good peripheral pulses. The patient will stay in [facility] ICU for the rest of the treatment. Reconsult pAdilsonrcorey MORE/DELFINO Voice ID: [id number] Report ID: [id number]
[2022-03-15] MEDS: CEFEPIME 2 GM in NA CHLORIDE 0.9% 100 ML IV SCH ×2 (00:14→08:16)
[2022-03-15] MEDS: NA CHLORIDE 0.9% 1,000 ML IV SCH ×3 (02:15→23:38)
[2022-03-15] MEDS: VANCOMYCIN 1.25 GM in NA CHLORIDE 0.9% 250 ML IVPB SCH (03:06)
[2022-03-15 06:03] LABS: Absolute Lymphocytes (CBC) 1.4 K/uL (0.7-4.9); Lymphocytes % 18.4 % (15.3-44.8); MCV 64.6 fL (80-100); MPV 8.3 fL (7.6-11.3); RBC Red Blood Cell Count 3.56 M/uL (3.86-4.86)
[2022-03-15 06:14] LABS: Magnesium 2.1 mg/dL (1.8-2.4); Potassium 3.4 mmol/L (3.5-5.1)
[2022-03-15 06:44] VITALS: BMI 29.1
[2022-03-15] MEDS: BENZONATATE 100 MG CAP PO PRN (07:16)
[2022-03-15] MEDS: NICOTINE 21 MG/PAT TD SCH (08:17)
[2022-03-15] MEDS ORDERED: POTASSIUM CL SA 10 MEQ TAB PO ONE (09:00)
--- NOTE | 2022-03-15 12:00 | P.PN ---
Subjective Date of Service: 03/15/22 Chief Complaint: Pyelonephritis, Anemia Patient states she feels better today. Phenylephrine drip weaned off. She is tolerating her meals. No more recorded fever. . Physical Examination - Vital Signs Temperature: 97.7 F Blood Pressure: 102/65 Pulse: 79 Respirations: 22 Pulse Ox (%): 95 - Studies Microbiology Data (last 24 hrs): 03/12/22 17:31 Clean Catch Urine [place] Count - Final >100,000 CFU/ML. 03/12/22 17:31 Clean Catch Urine - Final Escherichia Coli Assessment And Plan - Current Problems (Diagnosis) (1) Anemia Current Visit: Yes Status: Acute Qualifiers: Anemia type: unspecified type Qualified Code(s): D64.9 - Anemia, unspecified (2) Pyelonephritis Current Visit: Yes Status: Acute (3) Sepsis Current Visit: Yes Status: Acute Qualifiers: Sepsis type: sepsis due to unspecified organism Sepsis acute organ dysfunction status: with acute organ dysfunction Severe sepsis acute organ dysfunction type: unspecified Severe sepsis shock status: without septic shock Qualified Code(s): A41.9 - Sepsis, unspecified organism; R65.20 - Severe sepsis without septic shock - Plan Physical Exam General: Alert, In no apparent distress HEENT: Sclerae nonicteric Neck: Supple, No LAD, Without JVD. Respiratory: Clear to auscultation bilaterally, Normal air movement Cardiovascular: Regular rate/rhythm, Normal S1 S2 Gastrointestinal: Normal bowel sounds, No tenderness Musculoskeletal: Bilateral costovertebral angle tenderness. Integumentary: No rashes Neurological: Normal speech, Normal strength at 5/5 x4 extr, Normal tone, Normal affect Plan: Urine culture is grew pansensitive E. coli. Blood culture no growth. Change IV cefepime to IV Rocephin. Continue IV fluid Vasopressors discontinued. Blood cultures: No growth. Status post 1 unit PRBC transfusion No GI bleed, no hematemesis. Patient reported heavy menses which could explain her anemia Monitor H&H and transfuse as needed.
[2022-03-15] MEDS: CEFTRIAXONE 1,000 MG in NA CHLORIDE 0.9% 50 ML IVPB SCH (12:37)
[2022-03-15] MEDS: HYDROCODONE/APAP 5/325 MG TAB PO PRN (13:45)
--- NOTE | 2022-03-15 16:57 | CON ---
History Of Present Illness: This is a 32-year-old female. I was consulted to evaluate and manage fo r urosepsis. Patient was brought into the emergency room with altered mental status and hypotension with left flank pain of 3 days and dysuria, urgency and frequency. She has been a user of intravenou s meth, but she has stopped 2 weeks ago. She has been also a smoker of about 15 pack per day. Dominga lopezly, using nicotine patch. She is being started on IV vancomycin and cefepime. At the time of admi ssion, patient had a temperature of 103. She was given Rocephin, fluid bolus and Toradol. Patient w as on vasopressors in the ICU, which has been tapered off. Patient also had a right femoral central line placed by the surgical team for IV fluids and medication. Denies any chest pain, abdominal pain , back pain. Occasional cough. No shortness of breath. No diarrhea. No constipation. No nausea o r vomiting. Past Medical History: None. Social History: Tobacco positive. Alcohol positive. IV meth use. Family History: Diabetes mellitus, heart disease, and hypertension. Medications: Vancomycin, cefepime. See MAR for other medications. Allergies: NO KNOWN DRUG ALLERGIES. Review of Systems: 10-point review was performed. Physical Examination: General: This is a 32-year-old female, lying in ICU bed 7, not in any acute cardiopulmonary distress . Vital Signs: Temperature 98, pulse 71, respiration 20, blood pressure 94/60. HEENT: Poor dental hygiene. Neck: Supple. Lungs: Basal crackles. Heart: S1, S2. Regular. Abdomen: Soft. Bowel sounds present. Extremities: No edema. Laboratory Data: WBC 7.6 down from 15.6, hemoglobin 7.4, platelets are 170. Chemistry shows sodium 140, potassium 3.4, chloride 113, bicarb 21, BUN 5, creatinine 0.5. Albumin level is 2.6. Urinalysi s shows wbc more than 50. Microbiology data shows urine culture growing E coli sensitive to cefepime . Blood cultures negative for [address] and pelvis, 6.3 cm left ovarian cyst without s ignificant fluid. Mild left pyelonephritis. Assessment And Plan: This is a 32-year-old female, IV meth user, heavy tobacco use, coming in with t he mild left pyelonephritis and Escherichia coli positive in urine culture, being treated with cefepi me and vancomycin, would recommend to stop vancomycin as patient is stabilizing and cultures are not growing any gram-positive organisms. We will recommend to continue IV antibiotic for 1 more day befo re switching her to oral antibiotic for total of 2 weeks as patient has signs of pyelonephritis. Con tinue monitoring for signs of infection with the WBC and fever trend. Moderate protein-calorie malno urishment. Anemia of chronic disease. Continue supportive care. No other recommendation. Thank you for the consult. NF/MODL Voice ID: [id number] Report ID: [id number]
[2022-03-16] MEDS: HYDROCODONE/APAP 5/325 MG TAB PO PRN (02:06)
[2022-03-16] MEDS ORDERED: POTASSIUM CL SA 10 MEQ TAB PO ONE (07:23)
[2022-03-16] MEDS: NICOTINE 21 MG/PAT TD SCH (08:19)
[2022-03-16] MEDS: CEFTRIAXONE 1,000 MG in NA CHLORIDE 0.9% 50 ML IVPB SCH (08:20)
--- NOTE | 2022-03-16 14:03 | P.DS ---
Admission Date: 03/12/22 Discharge Date: 03/16/22 Disposition: ROUTINE DISCHARGE Discharge Condition: FAIR Reason for Admission: Pyelonephritis, Anemia - Problems (1) Anemia Current Visit: Yes Status: Acute Qualifiers: Anemia type: unspecified type Qualified Code(s): D64.9 - Anemia, unspecified (2) Pyelonephritis Current Visit: Yes Status: Acute (3) Sepsis Current Visit: Yes Status: Acute Qualifiers: Sepsis type: sepsis due to unspecified organism Sepsis acute organ dysfunction status: with acute organ dysfunction Severe sepsis acute organ dysfunction type: unspecified Severe sepsis shock status: without septic shock Qualified Code(s): A41.9 - Sepsis, unspecified organism; R65.20 - Severe sepsis without septic shock Brief History of Present Illness: Patient is a 32 year old female who presented to the ED with complaints of left flank pain for 3 days. She also reports associated dysuria, urgency, and frequency. She states that she quit using IV meth "cold turkey" 2 weeks ago. Vital signs were initially stable but after waiting in the waiting room for several hours, they started to worsen. She was tachycardic and hypotensive. Labs significant for WBC 13, hgb 6.3, potassium 2.9, urine positive for UTI. Lactic acid 1.8. CT abdomen pelvis showed mild left sided pyelonephritis. She was given 2L fluid, rocephin, toradol, and supplemental potassium in ED. BP improved but she had TMAX OF 103. She was started 1 unit PRBC transfusion and admitted for further management. Hospital Course: Patient admitted to the ICU, aggressively hydrated with IV fluid. She needed vasopressors to keep systolic blood pressure above 90. She was treated with broad-spectrum antibiotics-IV cefepime and vancomycin Urine culture is grew pansensitive E. coli. Blood culture no growth. IV vancomycin discontinued, she received a few days of IV cefepime and transition to IV Rocephin after she was weaned off vasopressor. Patient was transferred to the medical floor where her clinical condition co ntinued to improve. Her systolic blood pressure was soft, ranging from the high 80s to 100. I suspect patient has soft blood pressure at baseline. She is prescribed midodrine as needed. She was transfused 1 unit PRBC for hemoglobin of 6.3. She has microcytic anemia. She endorsed heavy menstrual bleeding. Her vitamin B12 level is also low. Patient is prescribed iron and vitamin B12. She was seen by infectious disease Dr. Allen who recommended 2 weeks of oral antibiotic. The E. coli is sensitive to ciprofloxacin. Patient is prescribed Cipro to complete 2 weeks of treatment. Vital Signs/Physical Exam: Temp Pulse Resp BP Pulse Ox 97.8 F 57 16 89/53 L 97 03/16/22 08:00 03/16/22 08:00 03/16/22 08:00 03/16/22 08:00 03/16/22 08:00 General: Alert, In no apparent distress, Oriented x3 HEENT: Mucous membr. moist/pink Neck: JVD not distended Respiratory: Clear to auscultation bilaterally, Normal air movement Cardiovascular: No edema, Regular rate/rhythm, Normal S1 S2 Gastrointestinal: Normal bowel sounds, Soft and benign, Non-distended, No tenderness Musculoskeletal: No swelling Integumentary: No rashes Neurological: Normal speech, Normal strength at 5/5 x4 extr, Cranial nerves 3-12 intact Laboratory Data at Discharge: WBC 7.60 K/uL (4.3-10.9) 03/15/22 05:30 Hgb 7.4 g/dL (12.0-15.0) L 03/15/22 05:30 Hct 23.0 % (36.0-45.0) L 03/15/22 05:30 Plt Count 170 K/uL (152-406) 03/15/22 05:30 Sodium 140 mmol/L (136-145) 03/15/22 05:30 Potassium 3.4 mmol/L (3.5-5.1) L 03/15/22 05:30 BUN 5 mg/dL (7-18) L 03/15/22 05:30 Creatinine 0.59 mg/dL (0.55-1.3) 03/15/22 05:30 Glucose 104 mg/dL (74-106) 03/15/22 05:30 Magnesium 2.1 mg/dL (1.8-2.4) 03/15/22 05:30 Total Bilirubin 0.4 mg/dL (0.2-1.0) 03/12/22 20:30 AST < 3 U/L (15-37) L 03/12/22 20:30 ALT 11 U/L (12-78) L 03/12/22 20:30 Alkaline Phosphatase 65 U/L (45-117) 03/12/22 20:30 Triglycerides 61 mg/dL (<150) 03/13/22 05:40 Cholesterol < 50 mg/dL (<200) 03/13/22 05:40 HDL Cholesterol 21 mg/dL (40-60) L 03/13/22 05:40 Cholesterol/HDL Ratio 2.38 03/13/22 05:40 Home Medications: Benzonatate [Tessalon Perle*] 100 mg PO TID PRN #15 cap 03/16/22 Ciprofloxacin HCl [Cipro] 500 mg PO BID #28 tab 03/16/22 Cyanocobalamin [Vitamin B-12*] 1,000 mcg PO DAILY #30 tab 03/16/22 Hydrocodone 5/APAP 325 [[place] 5/325*] 1 tab PO Q6H PRN #12 tab 03/16/22 Iron Polysaccharide Complex [Polysaccharide Iron] 150 mg PO DAILY #30 cap 03/16/22 Melatonin 5 mg PO BEDTIME PRN PRN #30 tab 03/16/22 Midodrine HCl 2.5 mg PO TID PRN #90 tab 03/16/22 New Medications: Ciprofloxacin HCl [Cipro] 500 mg PO BID #28 tab Melatonin 5 mg PO BEDTIME PRN PRN #30 tab PRN Reason: Insomnia Midodrine HCl 2.5 mg PO TID PRN #90 tab PRN Reason: for SBP < 90 Hydrocodone 5/APAP 325 [[place] 5/325*] 1 tab PO Q6H PRN #12 tab PRN Reason: Pain Scale 5-7 (Moderate) Iron Polysaccharide Complex [Polysaccharide Iron] 150 mg PO DAILY #30 cap Benzonatate [Tessalon Perle*] 100 mg PO TID PRN #15 cap PRN Reason: Cough Cyanocobalamin [Vitamin B-12*] 1,000 mcg PO DAILY #30 tab Diet: Regular Activity: Ad mario Followup: NONE,NONE [Primary Care Provider] - 1-2 Weeks Time spent managing pt's care (in minutes): 38
[2022-03-16] MEDS: NA CHLORIDE 0.9% 1,000 ML IV SCH (14:14)
[2022-03-16 17:48] VITALS: BP 98/60; TEMP 97.6
[2022-03-16] MEDS ORDERED: POLYETHYL GLY 3350 17 GM/DOSE ONE (23:33)
[2022-03-16] MEDS ORDERED: METOCLOPRAMIDE 10 MG/2mL INJ ONE (23:36)
[2022-03-16] MEDS ORDERED: BISACODYL E.C. 5 MG TAB PO ONE (23:38)
[2022-03-16] MEDS ORDERED: LACTULOSE 20 GM/30 ML UCUP ONE (23:39)
[2022-03-17] MEDS ORDERED: POLYETHYL GLY 3350 17 GM/DOSE ONE (00:06)
== END 2022-03-16 19:40 | disposition home or self-care (01) | DRG 872 ==
LOC: ER 15:57 → ERHOLD 23:06 → 3RD-ICU 03-13 13:09 → 4TH 03-15 18:00 → UNDODISIN 03-16 18:13
PROVIDERS: ADMIT Internal Medicine; ATTEND Internal Medicine
PROC: 30233N1 Transfusion of Nonautologous Red Blood Cells into Peripheral Vein, Percutaneous Approach (ICD-10-PCS; principal; 2022-03-13)
PROC: 06HY33Z Insertion of Infusion Device into Lower Vein, Percutaneous Approach (ICD-10-PCS; 2022-03-13)
DX: A41.51 Sepsis due to Escherichia coli [E. coli] (principal); N10 Acute pyelonephritis; E87.6 Hypokalemia; D50.9 Iron deficiency anemia, unspecified; D63.8 Anemia in other chronic diseases classified elsewhere; F17.210 Nicotine dependence, cigarettes, uncomplicated; R65.20 Severe sepsis without septic shock; Z88.1 Allergy status to other antibiotic agents; Z79.899 Other long term (current) drug therapy; Z20.822 Contact with and (suspected) exposure to COVID-19
CPT/HCPCS: 36415; 74177; 80048; 80053; 80061; 80202; 81003; 81015; 82607; 82728; 82746; 83540; 83605; 83735; 84132; 84443; 84466; 85014; 85018; 85025; 85652; 86140; 86850; 86900; 86901; 87040; 87077; 87086; 87088; 87186; 87811; 93306; 96361; 96365; 96375; 99284; J0692; J2001; J2270; J2370; J2765; J3370; J3480; J7030; J7040; J7050; J7060; P9016; P9047; Q9967